=== PATIENT | male | born 1940 | race Caucasian/White ===

== ENCOUNTER 2016-09-23 09:08 | Inpatient (IN) | payer OTHER ==
[2016-09-08 14:03] VITALS: BMI 33.0
--- NOTE | 2016-09-08 14:37 | PAT Medication Instructions ---
Service Date Sep 08, 2016. Current Home Medication List Dulaglutide (Trulicity), 1.5 MG SQ WK Ibuprofen Tab (Advil), 200-600 MG PO Q4H PRN for Pain Metformin Hcl (Glucophage), 1,000 MG PO HS Metformin Hcl (Glucophage), 500 MG PO QAM Simvastatin (Zocor), 10 MG PO QPM Medication Instructions For Your Scheduled Surgery - Continue as directed: Dulaglutide (Trulicity), 1.5 MG SQ WK - Hold the following medications 7 days prior to surgery per surgeon's instructions: Ibuprofen Tab (Advil), 200-600 MG PO Q4H PRN for Pain - Hold the following medications 48 hours prior to surgery: Metformin Hcl (Glucophage), 1,000 MG PO HS Metformin Hcl (Glucophage), 500 MG PO QAM - Take the following medications as scheduled the night before surgery: Simvastatin (Zocor), 10 MG PO QPM If you have any questions please call us at [phone] or [phone] or [phone]
--- NOTE | 2016-09-08 15:29 | DIAGNOSTIC IMAGING REPORT ---
TWO VIEW CHEST CLINICAL HISTORY: Preoperative examination. FINDINGS: PA and lateral chest radiographs are obtained. No prior studies are available for comparison at the time of dictation. The heart is mildly enlarged. The pulmonary vasculature is noncongested. Linear atelectasis versus scarring is noted at the left lung base. No airspace consolidation or pleural effusion is identified. There is no pneumothorax. The skeletal structures are osteopenic. Degenerative change is seen throughout the thoracic spine. IMPRESSION: No active disease in the chest. Electronically signed by: Harvey Mota M.D. 09/08/2016 3:28 PM Dictated Date/Time: 09/08/2016 3:27 PM
[2016-09-08 15:43] LABS: URINE APPEARANCE CLEAR (CLEAR); URINE BILIRUBIN NEG (NEG); URINE COLOR YELLOW; URINE NITRITE NEG (NEG); UROBILINOGEN NEG (NEG); ZZUR CULT IF INDIC CLEAN CATCH NO
[2016-09-08 15:44] LABS: INR 0.9 (0.9-1.1); PARTIAL THROMBOPLASTIN RATIO 0.9
[2016-09-08 15:49] LABS: MANUAL MICROSCOPIC REQUIRED? NO; REVIEW REQ? NO
[2016-09-23] VITALS (7 sets, daily range): BP systolic 114–141; BP diastolic 68–86; PULSE 75–108; TEMP 36.3–36.9; O2SAT 93–96; Ht 177.8 cm; Wt 105.7 kg
[~2016-09-23] VITALS: Ht 177.8 cm; Wt 105.7 kg
[~2016-09-23 09:08] MED LIST: ACETAMINOPHEN 500 MG TAB PO SCH; CEFAZOLIN 2000 MG/60 ML D5W 60 ML IV SCH; CeleBREX 200 MG CAP PO SCH; DEXAMETHASONE 4 MG TAB PO SCH; DULA0.5I SQ; FAMOTIDINE 20 MG TAB PO SCH; GABAPENTIN 300 MG CAP PO SCH; GLC/500 PO; IBUP-103 PO; LACTATED RINGER'S 1000ML 1,000 ML IV SCH; LACTATED RINGER'S 1000ML 500 ML IV ONE; LACTATED RINGER'S 1000ML IV SCH; METOCLOPRAMIDE HCL 10 MG TAB PO SCH; ROPIVACAINE 5MG/ML 30 ML 150 MG, BUPIVACAINE/EPINEPHR 0.5% MPF 30 ML, KETOROLAC TROMETH... INFIL SCH; SIMV10TA2 PO
[2016-09-23] MEDS ORDERED: BUPIVACAINE/EPINEPHRINE 0.25% 1:200,000 30 ML VIAL ONE (09:09)
[2016-09-23] MEDS ORDERED: BUPIVACAINE 0.5 % 5 MG/1 ML PF 10ML VIAL ONE (09:09)
[2016-09-23] MEDS ORDERED: DEXAMETHASONE SOD INJ 4 MG/ML VIAL ONE (09:10)
--- NOTE | 2016-09-23 10:18 | History & Physical Bridge Note ---
H&P Re-Evaluation Bridge Note: I have examined the patient, reviewed the History & Physical and in the interval since the performance of the History & Physical I have noted the following changes of clinical significance: No changes noted
--- NOTE | 2016-09-23 10:33 | History and Physical ---
History & Physical Date Sep 23, 2016. Chief Complaint Painful left total knee arthroplasty with Curtis ingrowth total knee ligaments laxity medial lateral collateral ligaments History of Present Illness The patient is a 76 year old male with complaints of painful left total knee arthroplasty and total knee arthroplasty performed elsewhere and has had ongoing place of pain in his ligament laxity of his knee involving both medial lateral collateral ligaments with high-grade laxities of bracing physical therapy rest and activity modification his pain is a been persistent and has pain with every step when he ambulates he presents for revision of his metal- backed 30 arthroplasty is doing Waldron nephew Legion total knee arthroplasty Past Medical/Surgical History Past medical history is physical hypercholesterolemia diabetes osteoarthritis DJD of cervical spine mild obesity Additional History Hepatic Disease: No Endocrine Disorder: Yes Kidney Disease: No Hypertension: No Heart Disease: No Bleeding Tendencies: No Infectious Diseases: No Allergies Coded Allergies: No Known Allergies (Unverified , 09/23/16) Home Medications Scheduled Dulaglutide (Trulicity), 1.5 MG SQ WK Metformin Hcl (Glucophage), 1,000 MG PO HS Metformin Hcl (Glucophage), 500 MG PO QAM Simvastatin (Zocor), 10 MG PO QPM Scheduled PRN Ibuprofen Tab (Advil), 200-600 MG PO Q4H PRN for Pain Physical Examination Skin: warm/dry, no rash Eyes: normal inspection, EOMI, sclerae normal ENT: normal ENT inspection, pharynx normal Head: normocephalic, atraumatic Neck: supple, no adenopathy, trachea midline Respiratory/Chest: lungs clear, normal breath sounds, no respiratory distress Cardiovascular: regular rate, rhythm, no edema, no murmur Abdomen / GI: normal bowel sounds, non tender Back: normal inspection Addiitonal Comments: Painful left total knee arthroplasty midline scar with medial lateral collateral ligament laxity noted Diagnosis Painful left total knee arthroplasty with medial lateral collateral ligament laxity Plan of Treatment Plan for revision of the Curtis trabecular metal total knee arthroplasty to a legion total knee arthroplasty postop pain management DVT prophylaxis and box is necessary
[2016-09-23] MEDS ORDERED: MIDAZOLAM HCL 1 MG/ML 2ML VIAL ONE (10:38)
[2016-09-23] MEDS ORDERED: POVIDONE-IODINE OP SOLN 30 ML BTL ONE (10:58)
[2016-09-23] MEDS ORDERED: ORTHO JOINT ANESTHETIC ONE (10:58)
[2016-09-23] MEDS ORDERED: BACITRACIN 50000 UNIT VIAL ONE (10:58)
[2016-09-23] MEDS ORDERED: EpHEDrine SULFATE INJ 50 MG/ML AMP IV PRN (11:30)
[2016-09-23] MEDS ORDERED: FENTANYL CITRATE INJ 50 MCG/1 ML 2 ML VIAL IV PRN (11:30)
[2016-09-23] MEDS ORDERED: ATROPINE SULFATE 0.1 MG/ML 5ML SYR IV PRN (11:30)
[2016-09-23] MEDS ORDERED: PROMETHAZINE HCL INJ 6.25 MG in SODIUM CHLORIDE 0.9% 50ML 50 ML IV PRN (11:30)
[2016-09-23] MEDS ORDERED: ONDANSETRON INJ 2 MG/ML 2 ML VIAL IV PRN ×2 (11:30→15:30)
[2016-09-23] MEDS: TRANEXAMIC ACID INJ 1,000 MG in SODIUM CHLORIDE 0.9% 100ML 100 ML IV SCH ×2 (12:14→16:05)
[2016-09-23] MEDS ORDERED: FENTANYL CITRATE INJ 50 MCG/1 ML 2 ML VIAL ONE (14:22)
--- NOTE | 2016-09-23 14:47 | [facility] Operative Report ---
Operative Report Operative Date Sep 23, 2016. Pre-Operative Diagnosis Painful left total knee arthroplasty medial lateral collateral ligament laxity Post-Operative Diagnosis loosened collateral ligaments with loosened total knee arthroplasty painful Procedure(s) Performed Removal of total knee arthroplasty with revision to a lesion stem total knee arthroplasty size 6 femur 16 mm canal 160 mm length 4 mm offset set at 6:00 a 5 mm posterior lateral augment tibia size 6 with a 18 constrained poly-13 mm stem 160 mm long with a 6 mm by offset set at 9:[address] Amos Curriculum Specialist Surgeon(s) Stanton Colindres PA-C Estimated Blood Loss 10 mL Findings Ligamentous laxity medial lateral collateral ligaments with malpositioned tibial implant Specimens Microbiology- Left Knee Synovial Fluid: gram stain, routine culture and sensitivity, anaerobic/aerobic, out of room at 1256. Permanent Specimen A: Explanted Hardware Left Knee Drains medium Hemovac Anesthesia spinal Complication(s) None Disposition Recovery Room / PACU Indications Painful left total knee arthroplasty with substantial ligamentous laxity medial lateral collateral ligaments Description of Procedure After proper prepping and draping the left lower extremity incision made in the region of the previous median incision and medial parapatellar incision was made the patella was subluxed lateralward the distal femoral component was removed the proximal tibial component was removed utilizing a series of oscillating saws osteotomes flexible osteotomes because hemostasis was obtained and maintained all times was reviewed as well as sterile saline solution patella to be well cemented and well fixed and was left as is the femoral component was essentially trialed milligrams of small crack on the medial femoral condyle which was stable and left is cemented in position with the above components with a Legion femoral component and tibial component was also cemented in position in both AP and lateral planes the Daisy was tried to a size 18 constrained gave excellent stability in extension mid flexion and flexion. Patellar tracking was noted be excellent socially after a thorough irrigation debridement was the posterior capsular block was placed utilizing standard joint cocktail the medial lateral periosteal sleeves were also injected the components were socially cemented the tibia femur above the tracking was noted to be excellent stability was noted to be excellent both extension mid flexion and flexion does have informed thorough irrigation was as follows #1 Vicryl subcutaneous screws 2-0 Vicryl skin closed skin clips sterile compressive dressing placed patient was taken to recovery in stable condition. JANETH was necessary for prepping and drapping as well as wound closure of deep fascia Sub cutaneous tissue and skin and was necessary for the case. A sterile compressive dressing was placed patient was taken to recovery in stable condition of report dictated by Dandre Kumari attest to the content of the Intraoperative Record and any orders documented therein. Any exceptions are noted below.
--- NOTE | 2016-09-23 15:00 | Anesthesiology Progress Note ---
Anesthesia Post Op Note Date & Time Sep 23, 2016 at 15:00 Vital Signs Pain Intensity: 6 Vital Signs Past 12 Hours Date Time Temp Pulse Resp B/P (MAP) Pulse Ox O2 Delivery O2 Flow Rate FiO2 09/23/16 09:42 36.9 75 20 133/86 95 Room Air Notes Mental Status: alert / awake / arousable, participated in evaluation Pt Amnestic to Procedure: Yes Nausea / Vomiting: adequately controlled Pain: adequately controlled Airway Patency, RR, SpO2: stable & adequate BP & HR: stable & adequate Hydration State: stable & adequate Anesthetic Complications: no major complications apparent
[2016-09-23] MEDS ORDERED: PROPOFOL IV EMULSION 10 MG/ML 20 ML VIAL IV ONE (15:09)
[2016-09-23] MEDS ORDERED: MoRPHine SULFATE 2 MG/ML CARP IV PRN (15:30)
[2016-09-23] MEDS ORDERED: KETOROLAC TROMETHAMINE 15 MG/ML VIAL IV PRN (15:30)
[2016-09-23] MEDS ORDERED: BISACODYL 10 MG SUPP PR PRN (15:30)
[2016-09-23] MEDS ORDERED: MAGNESIUM HYDROXIDE SUSP 30 ML UDC PO PRN (15:30)
[2016-09-23] MEDS ORDERED: ALUMINUM/MAGNESIUM/SIMETH (MAALOX MAX) 30 ML UDC PO PRN (15:30)
[2016-09-23] MEDS ORDERED: MoRPHine SULFATE 4 MG/ML 1 ML CARP\\VIAL IV PRN (15:30)
--- NOTE | 2016-09-23 16:02 | DIAGNOSTIC IMAGING REPORT ---
TWO VIEWS LEFT KNEE CLINICAL HISTORY: Postoperative examination. FINDINGS: AP and crosstable lateral portable views of the left knee are obtained. A left knee arthroplasty is in near anatomic alignment with long tibial and femoral stems. There has been undersurface remodeling of the patella. No acute fracture is seen. There are expected postoperative changes around the knee including skin clips, a surgical drain, soft tissue edema, and subcutaneous gas. Numerous small metallic densities project over the joint space. IMPRESSION: Expected postoperative changes status post left knee arthroplasty. No acute fracture is seen. Electronically signed by: Harvey Mota M.D. 09/23/2016 4:01 PM Dictated Date/Time: 09/23/2016 4:00 PM
[2016-09-23] MEDS ORDERED: GLUCAGON FOR INJ 1 MG VIAL SQ PRN (17:00)
[2016-09-23] MEDS ORDERED: GLUCOSE 40% GEL 15 GM TUBE PO PRN (17:00)
[2016-09-23] MEDS ORDERED: GLUCOSE 10 TABS/TUBE PO PRN (17:00)
[2016-09-23] MEDS ORDERED: DEXTROSE 50% 50 ML SYR IV PRN (17:00)
[2016-09-23] MEDS: D5W AND 1/2NSS + 20MEQ KCL 1,000 ML IV SCH (17:13)
[2016-09-23] MEDS: FERROUS GLUCONATE 324 MG TAB PO SCH (17:45)
[2016-09-23] MEDS: INSULIN ASPART 100 UNITS/ML 3 ML PEN SC SCH ×2 (18:24→21:29)
[2016-09-23] MEDS: CEFAZOLIN IV 2,000 MG in DEXTROSE 5% 50ML 50 ML IV SCH (19:26)
[2016-09-23] MEDS: OXYCODONE HCL 10 MG TABCR (OXYCONTIN) PO SCH (21:21)
[2016-09-23] MEDS: ACETAMINOPHEN 500 MG TAB PO SCH (21:21)
[2016-09-23] MEDS: DOCUSATE SODIUM 100 MG CAP PO SCH (21:22)
[2016-09-23] MEDS: ASPIRIN 81 MG ECTAB PO SCH (21:22)
[2016-09-23] MEDS: SIMVASTATIN 10 MG TAB PO SCH (21:22)
[2016-09-23] MEDS: SENNA 8.6 MG TAB PO SCH (21:23)
[2016-09-24 03:07] VITALS: BP 139/80; PULSE 84; TEMP 36.9; O2SAT 96
[2016-09-24] MEDS: D5W AND 1/2NSS + 20MEQ KCL 1,000 ML IV SCH ×2 (03:30→12:47)
[2016-09-24] MEDS: CEFAZOLIN IV 2,000 MG in DEXTROSE 5% 50ML 50 ML IV SCH (03:30)
[2016-09-24] MEDS ORDERED: NURSING VERBAL MED ORDER ONE (03:45)
[2016-09-24] MEDS ORDERED: INSULIN ASPART 100 UNITS/ML 3 ML PEN SC SCH (04:00)
--- NOTE | 2016-09-24 04:16 | Medical Consult ---
Consultation Date of Consultation: Sep 24, 2016. Attending Physician: Isiah Amos D.O. Reason for Consultation: post op management History of Present Illness 76-year-old male with a past medical history of diabetes, hyperlipidemia, osteoarthritis status post left knee TKA several years ago presented for revision of his left knee TKA. He underwent revision of his arthroplasty this afternoon. Medicine was consulted to manage his blood sugars postsurgery. Patient is managed on metformin, trulicity for his diabetes as an outpatient. He states that his last hemoglobin A1c about a month ago was 7.3 Past Medical/Surgical History Hyperlipidemia, diabetes, osteoarthritis Social History Smoking Status: Never Smoker Allergies Coded Allergies: No Known Allergies (Unverified , 09/23/16) Current Inpatient Medications Current Inpatient Medications Medications (Trade) Dose Ordered Sig/Lynn Route Start Time Stop Time Status Last Admin Dose Admin Lactated Ringer's 1,000 ml @ 15 mls/hr Q24H IV 09/23/16 06:00 09/24/16 05:59 09/23/16 10:04 15 MLS/HR Simvastatin (Zocor Tab) 10 mg QPM PO 09/23/16 21:00 10/23/16 20:59 09/23/16 21:22 10 MG Morphine Sulfate (MoRPHine SULFATE INJ) 2 mg Q4HWA PRN IV 09/23/16 15:30 10/07/16 15:29 Morphine Sulfate (MoRPHine SULFATE INJ) 4 mg Q4HWA PRN IV 09/23/16 15:30 10/07/16 15:29 Insulin Aspart (novoLOG ASPART) SLIDING SCALE G... ACHS SC 09/23/16 17:15 10/23/16 17:14 09/23/16 21:29 6 UNITS Potassium Chloride/Dextrose/ Sod Cl 1,000 ml @ 100 mls/hr Q10H IV 09/23/16 17:00 09/24/16 15:16 09/24/16 03:30 100 MLS/HR Cefazolin Sodium 2000 mg/Dextrose 60 ml @ 100 mls/hr Q8H IV 09/23/16 20:00 09/24/16 04:35 09/24/16 03:30 100 MLS/HR Oxycodone HCl (Roxicodone Immediate Rel Tab) 1 TABLET FOR PAIN RATING... Q4H PRN PO 09/23/16 15:30 10/07/16 15:29 Oxycodone HCl (Oxycontin Tab) 10 mg Q12 PO 09/23/16 21:00 10/07/16 20:59 09/23/16 21:21 10 MG Acetaminophen (Tylenol Tab) 1,000 mg Q8 PO 09/23/16 22:00 10/23/16 21:59 09/23/16 21:21 1,000 MG Magnesium Hydroxide (Milk Of Magnesia Susp) 30 ml Q6H PRN PO 09/23/16 15:30 10/23/16 15:29 Bisacodyl (Dulcolax Supp) 10 mg DAILY PRN MT 09/23/16 15:30 10/23/16 15:29 Senna (Senokot Tab) 17.2 mg HS PO 09/23/16 21:00 10/23/16 20:59 09/23/16 21:23 17.2 MG Docusate Sodium (coLACE CAP) 100 mg BID PO 09/23/16 21:00 10/23/16 20:59 09/23/16 21:22 100 MG Al Hydrox/Mg Hydrox/Simethicone (Maalox Max Susp) 15 ml Q4H PRN PO 09/23/16 15:30 10/23/16 15:29 Multivitamins (Multivitamin Tab) 1 tab QAM PO 09/24/16 09:00 10/24/16 08:59 Ondansetron HCl (Zofran Inj) 4 mg Q6H PRN IV 09/23/16 15:30 10/23/16 15:29 Ferrous Gluconate (Ferrous Gluconate Tab) 324 mg TIDM PO 09/23/16 17:45 10/23/16 17:59 Pantoprazole Sodium (Protonix Tab) 40 mg QAM PO 09/24/16 09:00 10/24/16 08:59 Aspirin (Ecotrin Tab) 81 mg BID PO 09/23/16 21:00 10/23/16 20:59 09/23/16 21:22 81 MG Ketorolac Tromethamine (Toradol Inj) 15 mg Q6H PRN IV 09/23/16 15:30 09/28/16 15:29 Glucose (Glucose 40% Gel) 15-30 GRAMS 15 GRAMS... UD PRN PO 09/23/16 17:00 10/23/16 16:59 Glucose (Glucose Chew Tab) 4-8 Tablets 4 Tabl... UD PRN PO 09/23/16 17:00 10/23/16 16:59 Dextrose (Dextrose 50% 50ML Syringe) 25-50ML OF 50% DW IV FOR... UD PRN IV 09/23/16 17:00 10/23/16 16:59 Glucagon (Glucagon Inj) 1 mg UD PRN SQ 09/23/16 17:00 10/23/16 16:59 Insulin Aspart (novoLOG ASPART) SLIDING SCALE G... 0400 SC 09/24/16 04:00 10/24/16 03:59 09/24/16 04:03 3 UNITS Review of Systems Constitutional: No fever, No chills Eyes: No worsening of vision ENT: No hearing loss Respiratory: No cough, No sputum, No wheezing Cardiovascular: No chest pain Abdomen: No pain, No nausea, No vomiting Musculoskeletal: No joint pain Genitourinary - Male: No hematuria, No dysuria Psychiatric: No depression symptoms Endocrine: No fatigue Integumentary: No rash Physical Exam Date Time Temp Pulse Resp B/P (MAP) Pulse Ox O2 Delivery O2 Flow Rate FiO2 09/24/16 03:07 36.9 84 16 139/80 (99) 96 Room Air 09/23/16 23:23 36.4 99 18 114/68 (83) 93 Room Air 09/23/16 19:15 Room Air 09/23/16 19:01 36.9 108 18 129/68 (88) 94 Nasal Cannula 2.0 09/23/16 18:00 36.7 100 18 141/80 (100) 95 Nasal Cannula 2.0 09/23/16 17:04 36.3 95 18 137/80 (99) 95 Nasal Cannula 2.0 09/23/16 16:29 36.4 92 15 129/72 (91) 96 Nasal Cannula 2.0 09/23/16 16:00 96 Nasal Cannula 2.0 09/23/16 16:00 36.6 88 15 139/79 (99) 96 Nasal Cannula 2.0 09/23/16 16:00 96 Nasal Cannula 2.0 09/23/16 15:54 87 16 136/75 96 Nasal Cannula 2 09/23/16 15:45 36.2 86 16 134/80 97 Nasal Cannula 2 09/23/16 15:35 82 16 113/69 97 Nasal Cannula 2 09/23/16 15:25 90 18 122/70 97 Oxymask 5 09/23/16 15:15 36.9 89 18 114/77 98 Oxymask 10 09/23/16 09:42 36.9 75 20 133/86 95 Room Air General Appearance: WD/WN, no apparent distress Eyes: normal inspection ENT: normal ENT inspection, hearing grossly normal Neck: supple Respiratory/Chest: chest non-tender, lungs clear, normal breath sounds, no respiratory distress, no accessory muscle use Cardiovascular: regular rate, rhythm Abdomen/GI: normal bowel sounds, non tender, soft Extremities/Musculoskelatal: + pertinent finding (s/p left TKA revision) Neurologic/Psych: alert, normal mood/affect, oriented x 3 Laboratory Results Last 24 Hours Test 09/23/16 09:53 09/23/16 16:46 09/23/16 20:30 09/24/16 03:36 Bedside Glucose 128 mg/dl 181 mg/dl 287 mg/dl 214 mg/dl TWO VIEWS LEFT KNEE CLINICAL HISTORY: Postoperative examination. FINDINGS: AP and crosstable lateral portable views of the left knee are obtained. A left knee arthroplasty is in near anatomic alignment with long tibial and femoral stems. There has been undersurface remodeling of the patella. No acute fracture is seen. There are expected postoperative changes around the knee including skin clips, a surgical drain, soft tissue edema, and subcutaneous gas. Numerous small metallic densities project over the joint space. IMPRESSION: Expected postoperative changes status post left knee arthroplasty. No acute fracture is seen. Electronically signed by: Harvey Mota M.D. 09/23/2016 4:01 PM Dictated Date/Time: 09/23/2016 4:00 PM Assessment & Plan 76-year-old male with a past medical history of diabetes, hyperlipidemia, osteoarthritis status post left knee TKA several years ago presented for revision of his left knee TKA. Hyperglycemia: Blood sugars before surgery ranging between 180-220 Likely related to stress - Per patient, last hemoglobin A1c 7.3 - Hold home medications - Insulin sliding scale Left knee TKA revision: - Management per primary team Hyperlipidemia: -Continue Zocor DVT prophylaxis [facility] Resident Physician Supervision Note: Pt seen/examined independently. I discussed the case with the resident and agree with the findings and plan as documented in the note. Any exceptions or clarifications are listed here: 76 y/o M post L knee TKA revision - HPL. Hyperglycemia noted post-op 180-220. Medical service asked to consult post-op OE AAO x 3 S1,2 R CTAB NT, ND P: HBA1c ordered due to hyperglycemia No other apparent post-op complications Above discussed with pt and Resident Documented By: Kehinde Garcia Resident Tracking Resident Involvement: Resident Care Provided Care Provided: Adult [facility] Medicine
[2016-09-24] MEDS: ACETAMINOPHEN 500 MG TAB PO SCH ×3 (05:30→22:17)
[2016-09-24 05:46] LABS: HEMATOCRIT 39.3 % (42-52); MEAN CELL VOLUME 93.6 fL (80-100); MEAN CORPUSCULAR HEMOGLOBIN 31.7 pg (25-34); MEAN CORPUSCULAR HGB CONC 33.8 g/dl (32-36); MEAN PLATELET VOLUME 9.5 fL (7.4-10.4); PLATELET COUNT 225 K/uL (130-400); WHITE BLOOD COUNT 15.06 K/uL (4.8-10.8)
[2016-09-24 06:12] LABS: BUN/CREATININE RATIO 16.8 (10-20); CALCIUM 8.4 mg/dl (8.5-10.1); CREATININE 1.1 mg/dl (0.60-1.40); POTASSIUM 4.4 mmol/L (3.5-5.1)
--- NOTE | 2016-09-24 07:05 | Orthopedic Progress Note ---
Orthopedic Progress Note Date of Service Sep 24, 2016. Subjective Post OP Day: 1 (s/p Revision Left TKA) Reports: feeling well, pain controlled w PO medications, Denies: complaints, chest pain, SOB, nausea / vomiting, light headedness, calf pain Objective calves soft nontender, N/V intact, capillary refill less than 2 sec., dressing C /D/I, A&O x3, toes mobile, hemovac drainage (275cc/8 hours) Date Time Temp Pulse Resp B/P (MAP) Pulse Ox O2 Delivery O2 Flow Rate FiO2 09/24/16 03:07 36.9 84 16 139/80 (99) 96 Room Air 09/23/16 23:23 36.4 99 18 114/68 (83) 93 Room Air 09/23/16 19:15 Room Air 09/23/16 19:01 36.9 108 18 129/68 (88) 94 Nasal Cannula 2.0 09/23/16 18:00 36.7 100 18 141/80 (100) 95 Nasal Cannula 2.0 09/23/16 17:04 36.3 95 18 137/80 (99) 95 Nasal Cannula 2.0 09/23/16 16:29 36.4 92 15 129/72 (91) 96 Nasal Cannula 2.0 09/23/16 16:00 96 Nasal Cannula 2.0 09/23/16 16:00 36.6 88 15 139/79 (99) 96 Nasal Cannula 2.0 09/23/16 16:00 96 Nasal Cannula 2.0 09/23/16 15:54 87 16 136/75 96 Nasal Cannula 2 09/23/16 15:45 36.2 86 16 134/80 97 Nasal Cannula 2 09/23/16 15:35 82 16 113/69 97 Nasal Cannula 2 09/23/16 15:25 90 18 122/70 97 Oxymask 5 09/23/16 15:15 36.9 89 18 114/77 98 Oxymask 10 09/23/16 09:42 36.9 75 20 133/86 95 Room Air Laboratory Results 24 Hours: Test 09/24/16 05:28 Hematocrit 39.3 % Hemoglobin 13.3 g/dL Assessment & Plan Assessment: POD #1 s/p Revision Left TKA -PT/OT -TTWB with walker -plan for d/c home with OPPT -dvt proph with EDGAR/SCD/ASA Hyperglycemia: - Hold home medications - Insulin sliding scale Hyperlipidemia: -Continue Zocor Inhouse Planning DVT Prophylaxis: TEDs, SCDs, ASA Discharge Planning Discharge Planning: home with oppt
[2016-09-24 08:07] VITALS: BP 122/78; PULSE 76; TEMP 36.6; O2SAT 94
[2016-09-24 08:18] VITALS: O2SAT 94
[2016-09-24] MEDS: ASPIRIN 81 MG ECTAB PO SCH ×2 (08:59→21:06)
[2016-09-24] MEDS: FERROUS GLUCONATE 324 MG TAB PO SCH ×3 (08:59→18:16)
[2016-09-24] MEDS: MULTIVITAMIN TAB PO SCH (08:59)
[2016-09-24] MEDS: DOCUSATE SODIUM 100 MG CAP PO SCH ×2 (08:59→21:06)
[2016-09-24] MEDS: PANTOprazole SOD 40 MG TAB PO SCH (08:59)
[2016-09-24] MEDS: INSULIN ASPART 100 UNITS/ML 3 ML PEN SC SCH ×4 (09:05→21:00)
[2016-09-24] MEDS: OXYCODONE HCL 10 MG TABCR (OXYCONTIN) PO SCH ×2 (09:06→21:06)
--- NOTE | 2016-09-24 09:24 | Progress Note ---
Progress Note Date of Service Sep 24, 2016. (Laly Abreu MD) Progress Note MEDICINE PROGRESS NOTE Consult completed overnight, care transitioned to our team this AM S: Pt felt well, was eating breakfast - pancakes and sausages, this AM. Denied any pain. Reported he would be getting rehab today and potentially go home tomorrow Reports at home he takes Metformin and Trulicity, and he does eat a donut everyday and his sugar remains 120-160 O: Gen: Awake, alert, NAD CVS: RRR, HS normal no MRG Chest: CTAB Abd: SNT Ext: No edema A/P: 76 yo M with T2DM, day 2 s/p revision of L TKA. Hyperglycemia: Blood sugars before surgery ranging between 180-220, post-op have been 187-287 Will continue insulin sliding scale with tighter sliding scale Thank you for this consult, we will continue to follow. DVT prophylaxis: SCDs Disposition: MedSurg (Laly Abreu MD) Resident Physician Supervision Note: I was present with PGY3 Dr. Laly Abreu during the history and exam. I discussed the case with the resident and agree with the findings and plan as documented in the note. Any exceptions or clarifications are listed here: none. Pt c/o left knee pain only. No cp, sob, abd pain. Voiding well. +flatus. VSS no fever FSBS are high gen - nad neck - no JVD heart - RRR, s1, s2 lungs - CTA b/l abd - soft, NT, ND, BS+ ext - left knee wrapped in large dressings with drain; pulses both feet 2+ b/l A/P: Uncontrolled T2DM - add lantus 10 units qam; add carb coverage; cont correction factor. Documented By: Yaw Mitchell MD (Yaw Mitchell MD) Resident Tracking Resident Involvement: Resident Care Provided Care Provided: Adult Hospital Medicine (Laly Abreu MD)
[2016-09-24] MEDS: INSULIN GLARGINE SOLOSTAR 100 UNITS/ML 3 ML PEN SC SCH (09:26)
[2016-09-24 11:39] VITALS: BP 110/64; PULSE 76; TEMP 36.9; O2SAT 93
[2016-09-24] MEDS: OXYCODONE HCL IR 5 MG TAB (IMMEDIATE RELEASE) PO PRN ×3 (12:10→22:19)
--- NOTE | 2016-09-24 13:12 | Discharge Instructions ---
Discharge Instructions Date of Service Sep 24, 2016. Admission Reason for Admission: Left Knee Osteoarthritis Discharge Discharge Diagnosis / Problem: Left Total Knee Revision Discharge Goals Goal(s): Decrease discomfort, Improve function Activity Recommendations Activity Limitations: as noted below Weightbearing Status: Left weightbearing, Left toe touch . Instructions / Follow-Up Instructions / Follow-Up ACTIVITY RECOMMENDATIONS: SELF CARE INSTRUCTIONS AFTER TOTAL KNEE REPLACEMENT A. You may need to continue a physical therapy program after discharge from the hospital. There are several options available to you. Your doctor will assist you in selecting the best one for you. 1. An out-patient facility 2 to 3 times a week for therapy or home therapy. 2. Continue working on all exercises taught to you in the hospital. Your goals should be to increase bending of your knee to 90 degrees and beyond and to fully straighten your knee. B. You may progress at your own pace from walking with a walker or crutches, remain Toe-Touch weight bearing until your first follow up appointment. C. Make walking a part of your daily routine. Be up as much as comfortable with rest periods throughout the day. Rest with leg elevation is very important. Use the ice wrap frequently for the first 3-4 weeks. D. There are no restrictions on activities. You may ride in a car, shop, participate in flooring salesperson and all social activities. E. Wear the long elastic stockings (EDGAR hose) 20 hours a day for 2 weeks after surgery. They can be removed several times a day for laundering and for a bath. F. You may shower, no tub baths until cleared by your doctor. SPECIAL CARE INSTRUCTIONS: VERY IMPORTANT TO READ AND REVIEW A. There are a few signs you need to watch for after you are home. Call [facility] if you notice any of the followin. Increased severe knee pain. Some pain is expected especially when you exercise. 2. Increased swelling in your leg or knee; pain or swelling of the calf muscle in either lower leg. 3. Any fluid drainage from the incision. 4. Shortness of breath or chest pain. B. Please call [facility] at if you have any concerns or questions about your operation or recovery. The doctor or his nurse will return your call promptly. C. You must take antibiotics before dental work, bladder, bowel or other surgery. Your doctor will provide you with a permanent care to carry describing this precaution. IMPORTANT: * REMEMBER TO TAKE ASPIRIN, 81 MG, TWICE DAILY FOR 4 WEEKS UNLESS OTHERWISE DIRECTED. THIS IS YOUR BLOOD THINNER. * HIGH RISK PATIENTS MAY BE PRESCRIBED A STRONGER BLOOD THINNER. THIS WILL BE PROVIDED AT DISCHARGE. * CALL IF INCREASED PAIN, REDNESS, DRAINAGE OR FEVER GREATER THAT 101. * WEAR EDGAR HOSE 20 HOURS PER DAY FOR 2 WEEKS. * YOU MAY HAVE A LARGE BAND-AID LIKE DRESSING (SILVERON). THIS WILL REMAIN ON YOUR INCISION FOR 7 DAYS, THEN CAN BE REMOVED. IF INCISION IS LEAKING THROUGH DRESSING, CALL THE OFFICE . Prevena- This is a large suction dressing covering your incision. This will help pull any excess drainage from the wound and allow your incision to heal properly. You may shower with this if you can keep the unit outside of the shower. If any bleeding or leakage is noted please call your doctor's office. This will remain on your incision for 7 days and then should be removed. This can be done yourself or by the home nursing staff if applicable. The entire unit is disposable once removed. Once removed, keep incision clean and dry. If redness or drainage is noted, please call your surgeon. FOLLOW UP VISIT: If appointment is not already scheduled: Please call [facility] [place] [facility] to make a follow-up appointment for 2 weeks after your surgery at . Current Hospital Diet Patient's current hospital diet: Diabetes Type 2 Diet Discharge Diet Recommended Diet: Diabetes Type 2 Diet Procedures Procedures Performed: Left Total Knee Arthroplasty Revision, Cemented Pending Studies Studies pending at discharge: no Medical Emergencies . Who to Call and When: Medical Emergencies: If at any time you feel your situation is an emergency, please call [phone] immediately. . Non-Emergent Contact Non-Emergency issues call your: Primary Care Provider, Surgeon . "Provider Documentation" section prepared by Darrian Bales. . VTE Core Measure Inpt VTE Proph given/why not?: Other Anticoagulation (ASA 81mg po bid x 1 month ), T.E.Yovani Gil, SCD's [place] Drug Monitoring Program Search Results: patient reviewed within database, no issues identified
[2016-09-24 15:26] VITALS: BP 127/65; PULSE 63; TEMP 37; O2SAT 93
[2016-09-24] MEDS: SIMVASTATIN 10 MG TAB PO SCH (22:18)
[2016-09-24] MEDS: SENNA 8.6 MG TAB PO SCH (22:18)
[2016-09-24 23:23] VITALS: BP 108/54; PULSE 67; TEMP 36.6; O2SAT 95
[2016-09-25] MEDS: OXYCODONE HCL IR 5 MG TAB (IMMEDIATE RELEASE) PO PRN ×2 (05:38→16:43)
[2016-09-25] MEDS: ACETAMINOPHEN 500 MG TAB PO SCH ×3 (05:39→21:52)
[2016-09-25 06:56] VITALS: BP 124/71; PULSE 71; TEMP 36.8; O2SAT 94
--- NOTE | 2016-09-25 07:07 | Orthopedic Progress Note ---
Orthopedic Progress Note Date of Service Sep 25, 2016. Subjective Post OP Day: 2 Reports: feeling well, pain controlled w PO medications, Denies: complaints, chest pain, SOB, nausea / vomiting, light headedness, calf pain Objective calves soft nontender, N/V intact, capillary refill less than 2 sec., dressing C /D/I (prevena intact), A&O x3, toes mobile Date Time Temp Pulse Resp B/P (MAP) Pulse Ox O2 Delivery O2 Flow Rate FiO2 09/25/16 06:56 36.8 71 14 124/71 (88) 94 Room Air 09/25/16 00:35 Room Air 09/24/16 23:23 36.6 67 16 108/54 (72) 95 Room Air 09/24/16 15:26 37.0 63 19 127/65 (85) 93 Room Air 09/24/16 15:15 Room Air 09/24/16 11:39 36.9 76 19 110/64 (79) 93 Room Air 09/24/16 08:18 94 Room Air 09/24/16 08:07 36.6 76 20 122/78 (93) 94 Room Air 09/24/16 07:35 Room Air Assessment & Plan Assessment: POD #2 s/p Revision Left TKA -PT/OT -TTWB with walker -plan for d/c home with OPPT -dvt proph with EDGAR/SCD/ASA Hyperglycemia: - Hold home medications - Insulin sliding scale Hyperlipidemia: -Continue Zocor Inhouse Planning DVT Prophylaxis: TEDs, SCDs, ASA Discharge Planning Discharge Planning: home with oppt DVT Prophylaxis: TEDs, SCDs Therapy: Physical Therapy
[2016-09-25] MEDS ORDERED: ACET-24 PO (07:12)
[2016-09-25] MEDS ORDERED: ASPEC81 PO (07:12)
[2016-09-25] MEDS ORDERED: OXYSR10 PO (07:12)
[2016-09-25] MEDS ORDERED: RXC5 PO (07:12)
[2016-09-25] MEDS ORDERED: ONDA8TAB6 PO (07:12)
[2016-09-25] MEDS ORDERED: CLC100 PO (07:12)
[2016-09-25 07:30] VITALS: BP 140/82; PULSE 88; TEMP 37.3; O2SAT 91
[2016-09-25] MEDS: OXYCODONE HCL 10 MG TABCR (OXYCONTIN) PO SCH ×2 (07:31→21:50)
[2016-09-25] MEDS: MULTIVITAMIN TAB PO SCH (07:31)
[2016-09-25] MEDS: PANTOprazole SOD 40 MG TAB PO SCH (07:31)
[2016-09-25] MEDS: FERROUS GLUCONATE 324 MG TAB PO SCH ×3 (07:31→19:35)
[2016-09-25] MEDS: INSULIN ASPART 100 UNITS/ML 3 ML PEN SC SCH ×4 (07:37→21:00)
[2016-09-25] MEDS: INSULIN GLARGINE SOLOSTAR 100 UNITS/ML 3 ML PEN SC SCH (07:38)
[2016-09-25] MEDS: DOCUSATE SODIUM 100 MG CAP PO SCH ×2 (08:02→21:50)
[2016-09-25] MEDS: ASPIRIN 81 MG ECTAB PO SCH ×2 (08:02→21:50)
[2016-09-25 08:46] VITALS: O2SAT 91
[2016-09-25 15:22] VITALS: BP 131/72; PULSE 78; TEMP 37; O2SAT 95
--- NOTE | 2016-09-25 20:30 | Progress Note ---
Subjective Date of Service: Sep 25, 2016. Subjective Pt evaluation today including: conversation w/ patient, physical exam, chart review, lab review, review of inpatient medication list Pain: left knee - ongoing PO Intake: poor - feels nauseous Voiding: no voiding problems Had nausea this am after eating breakfast. Then, after working with PT, he had dizziness and simply didn't feel well. He has not had a bowel movement and is passing little flatus. No chest pain or sob. Fingerstick blood sugars have been normal. Review of Systems Constitutional: No fever Respiratory: No cough, No shortness of breath, No dyspnea on exertion Cardiac: No chest pain, No orthopnea Abdomen: + nausea, No pain Objective Vital Signs Date Time Temp Pulse Resp B/P (MAP) Pulse Ox O2 Delivery O2 Flow Rate FiO2 09/25/16 15:22 37.0 78 18 131/72 (91) 95 Room Air 09/25/16 08:46 91 Room Air 09/25/16 07:30 Room Air 09/25/16 07:30 37.3 88 20 140/82 (101) 91 Room Air 09/25/16 06:56 36.8 71 14 124/71 (88) 94 Room Air 09/25/16 00:35 Room Air 09/24/16 23:23 36.6 67 16 108/54 (72) 95 Room Air Physical Exam General Appearance: no apparent distress ENT: pharynx normal Neck: no JVD Respiratory/Chest: lungs clear, no respiratory distress, no accessory muscle use Cardiovascular: regular rate, rhythm, no gallop, no murmur Abdomen: normal bowel sounds, non tender, no organomegaly, + distended (mild ) Extremities: no pedal edema (right ankle), + pedal edema (left ankle) Neurologic/Psychiatric: alert, oriented x 3 Skin: + pertinent finding (large dressing in place left leg ) Laboratory Results Last 24 Hours Test 09/24/16 20:43 09/25/16 06:48 09/25/16 11:54 09/25/16 16:45 Bedside Glucose 154 mg/dl 115 mg/dl 134 mg/dl 206 mg/dl Assessment and Plan 76yo male: 1. left total knee revision, POD #2 - continues with considerable pain, ambulation issues, etc. Defer management to orthopedics. 2. T2DM, previously uncontrolled - improved. cont lantus + novolog. 3. nausea, no bowel movement, etc - watch closely for ileus. Narcotics likely playing large role in these GI symptoms. Dulcolax suppos x 1. Cont aggressive bowel regimen. If symptoms persist then check KUB x-ray. 4. dizziness - suspect 2nd to narcotics (oxycontin, etc). He does not appear volume depleted. Check cbc, bmp, mag in am. DVT proph - per ortho. Will continue to follow. Continued [facility] stay due to: inadequate po fluid intake Discharge planning: uncertain
[2016-09-25] MEDS: SIMVASTATIN 10 MG TAB PO SCH (21:51)
[2016-09-25] MEDS: SENNA 8.6 MG TAB PO SCH (21:51)
[2016-09-25 23:42] VITALS: BP 119/62; PULSE 89; TEMP 37.3; O2SAT 94
[2016-09-26] MEDS: ACETAMINOPHEN 500 MG TAB PO SCH (05:42)
[2016-09-26 05:55] LABS: HEMATOCRIT 39.9 % (42-52); MEAN CELL VOLUME 94.1 fL (80-100); MEAN CORPUSCULAR HEMOGLOBIN 31.1 pg (25-34); MEAN CORPUSCULAR HGB CONC 33.1 g/dl (32-36); MEAN PLATELET VOLUME 9.7 fL (7.4-10.4); PLATELET COUNT 235 K/uL (130-400); RED BLOOD COUNT 4.24 M/uL (4.7-6.1); WHITE BLOOD COUNT 10.15 K/uL (4.8-10.8)
[2016-09-26 06:32] LABS: CALCIUM 8.5 mg/dl (8.5-10.1); CREATININE 0.97 mg/dl (0.60-1.40); MAGNESIUM 1.9 mg/dl (1.8-2.4); POTASSIUM 3.9 mmol/L (3.5-5.1)
[2016-09-26 07:30] VITALS: BP 125/69; PULSE 78; TEMP 37.1; O2SAT 93
--- NOTE | 2016-09-26 07:57 | Orthopedic Progress Note ---
Orthopedic Progress Note Date of Service Sep 26, 2016. Subjective Post OP Day: 1 Reports: feeling well Objective N/V intact, dressing C/D/I (Prevena in place), toes mobile Date Time Temp Pulse Resp B/P (MAP) Pulse Ox O2 Delivery O2 Flow Rate FiO2 09/26/16 07:30 37.1 78 18 125/69 (87) 93 Room Air 09/25/16 23:47 Room Air 09/25/16 23:42 37.3 89 16 119/62 (81) 94 Room Air 09/25/16 16:35 Room Air 09/25/16 15:22 37.0 78 18 131/72 (91) 95 Room Air 09/25/16 08:46 91 Room Air Laboratory Results 24 Hours: Test 09/26/16 05:19 Hematocrit 39.9 % Hemoglobin 13.2 g/dL Assessment & Plan Assessment: POD #3 s/p Revision Left TKA -PT/OT -TTWB with walker -plan for d/c home with OPPT -dvt proph with EDGAR/SCD/ASA Hyperglycemia: - Hold home medications - Insulin sliding scale Hyperlipidemia: -Continue Zocor Inhouse Planning DVT Prophylaxis: TEDs, SCDs, ASA Discharge Planning Discharge Planning: home with oppt DVT Prophylaxis: TEDs, SCDs Therapy: Physical Therapy
[2016-09-26] MEDS: PANTOprazole SOD 40 MG TAB PO SCH (09:00)
[2016-09-26] MEDS: ASPIRIN 81 MG ECTAB PO SCH (09:00)
[2016-09-26] MEDS: MULTIVITAMIN TAB PO SCH (09:00)
[2016-09-26] MEDS: FERROUS GLUCONATE 324 MG TAB PO SCH (09:00)
[2016-09-26] MEDS: DOCUSATE SODIUM 100 MG CAP PO SCH (09:00)
[2016-09-26] MEDS: OXYCODONE HCL 10 MG TABCR (OXYCONTIN) PO SCH (09:01)
[2016-09-26] MEDS: INSULIN ASPART 100 UNITS/ML 3 ML PEN SC SCH (09:03)
[2016-09-26] MEDS: INSULIN GLARGINE SOLOSTAR 100 UNITS/ML 3 ML PEN SC SCH (09:04)
[2016-09-26 09:21] VITALS: BP 125/69; PULSE 78; TEMP 37.1; O2SAT 93
[2016-09-26] MEDS: OXYCODONE HCL IR 5 MG TAB (IMMEDIATE RELEASE) PO PRN (12:35)
--- NOTE | 2016-09-26 18:08 | Progress Note ---
Subjective Date of Service: Sep 26, 2016. Subjective Pt evaluation today including: conversation w/ patient, physical exam, chart review, lab review Pain: left knee only; no abdominal pain PO Intake: good; no nausea/emesis today Voiding: no voiding problems Patient feels "much better" today. Denies dizziness. Just c/o left knee pain. Review of Systems Constitutional: No fever Respiratory: No cough, No sputum, No wheezing, No shortness of breath, No dyspnea on exertion Cardiac: No chest pain, No orthopnea Abdomen: No pain Objective Vital Signs Date Time Temp Pulse Resp B/P (MAP) Pulse Ox O2 Delivery O2 Flow Rate FiO2 09/26/16 09:21 37.1 78 18 93 Room Air Nasal Cannula 09/26/16 07:30 37.1 78 18 125/69 (87) 93 Room Air 09/25/16 23:47 Room Air 09/25/16 23:42 37.3 89 16 119/62 (81) 94 Room Air Physical Exam General Appearance: no apparent distress ENT: pharynx normal Neck: no JVD Respiratory/Chest: lungs clear, no respiratory distress, no accessory muscle use Cardiovascular: regular rate, rhythm, no gallop, no murmur Abdomen: normal bowel sounds, non tender, soft, no organomegaly Extremities: no pedal edema (right ankle ), + pedal edema (left foot - very mild ), + pertinent finding (left knee dressing/vac in place) Neurologic/Psychiatric: alert, oriented x 3 Laboratory Results Last 24 Hours Test 09/25/16 20:23 09/26/16 05:19 09/26/16 08:04 Bedside Glucose 107 mg/dl 132 mg/dl White Blood Count 10.15 K/uL Red Blood Count 4.24 M/uL Hemoglobin 13.2 g/dL Hematocrit 39.9 % Mean Corpuscular Volume 94.1 fL Mean Corpuscular Hemoglobin 31.1 pg Mean Corpuscular Hemoglobin Concent 33.1 g/dl RDW Standard Deviation 50.9 fL RDW Coefficient of Variation 14.9 % Platelet Count 235 K/uL Mean Platelet Volume 9.7 fL Nucleated RBC Absolute Count (auto) 0.03 K/uL Nucleated Red Blood Cells % 0.3 % Sodium Level 139 mmol/L Potassium Level 3.9 mmol/L Chloride Level 105 mmol/L Carbon Dioxide Level 30 mmol/L Anion Gap 4.0 mmol/L Blood Urea Nitrogen 12 mg/dl Creatinine 0.97 mg/dl Est Creatinine Clear Calc Drug Dose 80.1 ml/min Estimated GFR () 88.1 Estimated GFR (Non- 76.1 BUN/Creatinine Ratio 12.0 Random Glucose 118 mg/dl Calcium Level 8.5 mg/dl Magnesium Level 1.9 mg/dl Assessment and Plan 76yo male: 1. left total knee revision, POD #3 2. T2DM, controlled - d/c insulin at discharge, change back to metformin. 3. nausea, no bowel movement - resolved. Aggressive bowel regimen at discharge. 4. dizziness - suspect 2nd to narcotics (oxycontin, etc). resolved. 5. leukocytosis - resolved. 6. hyperlipidemia - resume statin. ok from medical standpoint to return home Discharge planning: home
--- NOTE | 2016-10-05 09:14 | Discharge Summary ---
Orthopedic Discharge Summary Admission Date/Reason Sep 23, 2016 at 10:22 Left Knee Osteoarthritis. Discharge Date/Disposition Sep 25, 2016 Home Diagnosis Principal Diagnosis: Left Knee Djd Secondary Diagnoses/Problems: hypercholesterolemia diabetes osteoarthritis DJD of cervical spine mild obesity Procedure(s) Performed Left Knee TKA Consultations Dr. Lorrie Luna Medication Reconciliation New Medications: Ondansetron Hcl (Zofran) 8 Mg Tab 8 MG PO Q8 PRN for Nausea, #20 TAB Acetaminophen (Sb Non-Aspirin Extra Stre) 500 Mg Tab 1000 MG PO Q8, #126 TAB Aspirin (Aspirin EC Low Dose) 81 Mg Ectab 81 MG PO BID for 30 Days, #60 TAB Docusate Sodium (Docusate Sodium) 100 Mg Cap 100 MG PO BID for 15 Days, #30 CAP Oxycodone HCl (Oxycontin) 10 Mg Tabcr 10 MG PO Q12, #20 Oxycodone HCl (Oxycodone HCl) 5 Mg Tab 5-10 MG PO Q4H PRN for Pain, #60 TAB Continued Medications: Metformin Hcl (Glucophage) 500 Mg Tab 1000 MG PO HS, TAB Metformin Hcl (Glucophage) 500 Mg Tab 500 MG PO QAM, TAB Simvastatin (Zocor) 10 Mg Tab 10 MG PO QPM, TAB Discontinued Medications: Dulaglutide (Trulicity) 1.5 Mg/0.5 Ml Inj 1.5 MG SQ WK Ibuprofen Tab (Advil) 200 Mg Tab 200-600 MG PO Q4H PRN for Pain, TAB Admission Physical Exam As per Admitting History & Physical. Hospital Course The Patient had an uneventful hospital course. Labs remained stable- lowest hemoglobin recorded: 12.2. Pain controlled on oral medications. Participated in PT with ambulation distance of 50 feet. ROM of operative knee reached 116 degrees. Drainage output totaled 975 cc prior to discontinuation. Patient did have a reported bowel movement. Incision remained clean/dry/intact. DVT prophylaxis with Aspirin EC 81mg BID x 30 days/Phan stockings. Patient discharged home with Outpatient PT in stable condition. Please refer to daily progress notes for further details. Discharge Instructions Please refer to the electronic Patient Visit Report (Discharge Instructions) for additional information.
== END 2016-09-26 13:51 | disposition home or self-care (01) | DRG 468 ==
LOC: C.ACU 09:08 → C.3E 10:22 → ENRESERV 15:35
PROVIDERS: ADMIT Orthopaedic Surgery; ATTEND Orthopaedic Surgery
PROC: 0SPD0JZ Removal of Synthetic Substitute from Left Knee Joint, Open Approach (ICD-10-PCS; principal; 2016-09-23 11:15)
PROC: 0SRD0J9 Replacement of Left Knee Joint with Synthetic Substitute, Cemented, Open Approach (ICD-10-PCS; principal; 2016-09-23 11:15)
DX: T84.033A Mechanical loosening of internal left knee prosthetic joint, initial encounter (principal); T84.84XA Pain due to internal orthopedic prosthetic devices, implants and grafts, initial encounter; Y79.2 Prosthetic and other implants, materials and accessory orthopedic devices associated with adverse incidents; M23.8X2 Other internal derangements of left knee; R11.0 Nausea; R42 Dizziness and giddiness; K59.03 Drug induced constipation; T40.2X5A Adverse effect of other opioids, initial encounter; Y92.230 Patient room in hospital as the place of occurrence of the external cause; D72.829 Elevated white blood cell count, unspecified; E11.65 Type 2 diabetes mellitus with hyperglycemia; E78.00 Pure hypercholesterolemia, unspecified; E78.5 Hyperlipidemia, unspecified; M19.90 Unspecified osteoarthritis, unspecified site; M47.9 Spondylosis, unspecified; E66.9 Obesity, unspecified; G47.33 Obstructive sleep apnea (adult) (pediatric); Z68.33 Body mass index [BMI] 33.0-33.9, adult; Z96.652 Presence of left artificial knee joint; Z79.84 Long term (current) use of oral hypoglycemic drugs; Z79.899 Other long term (current) drug therapy